=== PATIENT | male | born 1960 | race Caucasian/White ===

== ENCOUNTER → 2017-03-12 | Outpatient (CLI) | payer OTHER ==
--- NOTE | 2017-03-12 11:56 | PCVCIMAG ---
APPROVED REPORT Exam: Stress Echocardiogram Indication: CAD , Hypertension, Dyspnea Patient Location: Bedside Stress Nurse: Christel Davis RN Status: routine Ht: 5 ft 8 in HR: 56 bpm BP: 132/76 mmHg Procedure The patient underwent an Exercise Stress Test using the Dmitri Protocol. Blood pressure, heart rate, and EKG were monitored. An Echocardiogram was performed by parts identification technician in four stages in quad fashion. At peak stress, four selected images were obtained and placed side by side with resting images for comparison. Stress Test Details Stress Test: Exercise stress testing was performed using a Dmitri protocol. HR Resting HR: 56 bpmMax Heart Rate (APMHR): 163 bpm Max HR Achieved: 166 bpmTarget HR (85% APMHR): 138 bpm % of APMHR: 101 Recovery HR: 99 bpm HR response to stress: Normal HR response to stress BP Resting BP: 132/76 mmHg Max BP: 188/80 mmHg Recovery BP: 160/80 mmHg ECG Resting ECG: Sinus Rhythm Stress ECG: Sinus Rhythm Recovery ECG: Sinus Rhythm Clinical Reason for Termination: Maximal effort Exercise duration: 10 min 00 sec Highest Stage Achieved: Stage 4: 4.2 mph at 16% grade. Exercise capacity: 13.40 METs Overall Exercise Capacity for Age: Good Pre-Stress Echo The resting Echocardiogram showed normal left ventricular contractility with an estimated Ejection Fraction of about >55%. Mild inferior basal hypokinesis at rest. Post-Stress Echo The stress Echocardiogram showed normal left ventricular contractility with an estimated Ejection Fraction of about 60-65%. Normal augmentation of wall motion in all segments on post stress images. Clinical No clinical or ECG evidence for ischemia. Conclusion Clinical Response: Non-ischemic Exercise Capacity: Average Stress ECG Response: Non-ischemic Stress Echo Images: Non-ischemic Other Information Study Quality: Adequate
== END | disposition home or self-care (01) ==
LOC: PCVCIMAG 09:50
PROVIDERS: ATTEND Internal Medicine Cardiovascular Disease
DX: I25.10 Atherosclerotic heart disease of native coronary artery without angina pectoris (principal); R06.00 Dyspnea, unspecified; I10 Essential (primary) hypertension
CPT/HCPCS: 80061; 93325; 93351

== ENCOUNTER → 2018-07-31 | Outpatient (CLI) | payer OTHER ==
--- NOTE | 2018-07-31 14:48 | PCVCIMAG ---
APPROVED REPORT Study performed: 07/31/2018 14:04:32 Exam: Stress Echocardiogram Indication: CAD s/p CABG, htn, dyspnea Patient Location: Echo lab Stress Nurse: Christel Davis RN Status: routine Ht: 5 ft 8 in HR: 80 bpm BP: 130/78 mmHg Rhythm: NSR Procedure The patient underwent an Exercise Stress Test using the Dmitri Protocol. Blood pressure, heart rate, and EKG were monitored. An Echocardiogram was performed by chemical laboratory technician in four stages in quad fashion. At peak stress, four selected images were obtained and placed side by side with resting images for comparison. Stress Test Details Stress Test: Exercise stress testing was performed using a Dmitri protocol. HR Resting HR: 80 bpmMax Heart Rate (APMHR): 161 bpm Max HR Achieved: 169 bpmTarget HR (85% APMHR): 136 bpm % of APMHR: 104 Recovery HR: 92 bpm HR response to stress: Normal HR response to stress BP Resting BP: 130/78 mmHg Max BP: 224/88 mmHg Recovery BP: 170/80 mmHg BP response to stress: Normal blood pressure response to stress. ECG Resting ECG: Sinus Rhythm, nonspecific ST-T abnormalities Stress ECG: Sinus Rhythm, nonspecific ST-T abnormalities ST Change: Nondiagnostic resting ST abnormalities Arrhythmia: occasional isolated PVC Recovery ECG: Sinus Rhythm, nonspecific ST-T abnormalities Recovery ST Change: Nondiagnostic resting ST abnormalities Recovery Arrhythmia: None Clinical Reason for Termination: Maximal effort, Dyspnea Stress Symptoms: Emesis Exercise duration: 9 min sec Highest Stage Achieved: Stage 3: 3.4 mph at 14% grade. Exercise capacity: 10.4 METs Overall Exercise Capacity for Age: Normal Scale: Sedentary Angina Score: None Pre-Stress Echo The resting Echocardiogram showed normal left ventricular contractility with an estimated Ejection Fraction of about >55%. Normal wall motion in all segments on baseline images. Post-Stress Echo The stress Echocardiogram showed normal left ventricular contractility with an estimated Ejection Fraction of about 65%. Normal augmentation of wall motion in all segments on post stress images. Clinical No clinical or ECG evidence for ischemia. Conclusion Clinical Response: Non-ischemic Exercise Capacity: Average Stress ECG Response: Equivocal Stress Echo Images: Non-ischemic The left ventricle is normal in size and mild LVH in both the rest and stress images. Other Information Study Quality: Adequate <Conclusion> The left ventricle is normal in size and mild LVH in both the rest and stress images.
== END | disposition home or self-care (01) ==
LOC: PCVCIMAG 13:38
PROVIDERS: ATTEND Internal Medicine Cardiovascular Disease
DX: I25.10 Atherosclerotic heart disease of native coronary artery without angina pectoris (principal); I10 Essential (primary) hypertension; R06.00 Dyspnea, unspecified; Z95.1 Presence of aortocoronary bypass graft
CPT/HCPCS: 93325; 93351